=== PATIENT | female | born 1970 | race American Indian/Alaskan Native ===

== ENCOUNTER 2017-11-27 14:27 | Outpatient (CLI) | payer OTHER | END 2017-11-27 15:00 | disposition home or self-care (01) | LOC: NST 14:27 | DX: Z34.83 Encounter for supervision of other normal pregnancy, third trimester (principal) ==

== ENCOUNTER 2017-12-31 13:40 | Outpatient (CLI) | payer OTHER | END 2017-12-31 15:29 | disposition home or self-care (01) | LOC: NST 13:40 | DX: Z34.83 Encounter for supervision of other normal pregnancy, third trimester (principal) ==

== ENCOUNTER 2018-01-07 04:20 | Inpatient (IN) | payer OTHER ==
[~2018-01-07] VITALS: Ht 170.2 cm; Wt 77.1 kg
== END 2018-01-10 14:47 | disposition home or self-care (01) | DRG 765 ==
LOC: OB/GYN 04:20 → LDR 04:20 → O/R 09:00 → OB/GYN 17:16
PROVIDERS: Obstetrics & Gynecology Maternal & Fetal Medicine
PROC: 4A1HXCZ Monitoring of Products of Conception, Cardiac Rate, External Approach (ICD-10-PCS; 2018-01-07)
PROC: 4A033R1 Measurement of Arterial Saturation, Peripheral, Percutaneous Approach (ICD-10-PCS; 2018-01-07)
PROC: 10D00Z1 Extraction of Products of Conception, Low, Open Approach (ICD-10-PCS; principal; 2018-01-07 07:00)
DX: O42.013 Preterm premature rupture of membranes, onset of labor within 24 hours of rupture, third trimester (principal); O60.14X0 Preterm labor third trimester with preterm delivery third trimester, not applicable or unspecified; O34.29 Maternal care due to uterine scar from other previous surgery; Z3A.35 35 weeks gestation of pregnancy; Z37.0 Single live birth

== ENCOUNTER 2021-01-21 13:48 | Emergency (ER) | payer OTHER ==
[~2021-01-21] VITALS: Ht 170.2 cm; Wt 68.9 kg
[2021-01-21] MEDS ORDERED: MEDROLPACK PO (17:35)
[2021-01-21] MEDS ORDERED: IPRAT-ALBUT 0.5-3 ML IH (17:35)
[2021-01-21] MEDS ORDERED: PROMETH-CODEIN 65 ML PO (17:35)
[2021-01-21] MEDS ORDERED: MUCINEX DM ER1 EAC1 PO (17:35)
[2021-01-21] MEDS ORDERED: BUDESONIDE0.5 MG/2 M IH (17:35)
[2021-01-21] MEDS ORDERED: LEVOFLOXACIN750 MG PO (17:35)
== END 2021-01-21 17:50 ==
LOC: ER 13:48
DX: J20.9 Acute bronchitis, unspecified (principal); Z20.822 Contact with and (suspected) exposure to COVID-19